=== PATIENT | male | born 1995 | race Caucasian/White ===

== ENCOUNTER 2021-10-14 17:39 | Emergency (ER) | payer BC ==
[2021-10-14 17:49] VITALS: BP 145/97; PULSE 58
[2021-10-14] MEDS ORDERED: Lidocaine 1% 10 ML MDV INJECT ONE (17:54)
[2021-10-14] MEDS ORDERED: cefTRIAXone 1 GM, Lidocaine 1% 2.1 ML IM ONE ×2 (19:08)
[2021-10-14] MEDS ORDERED: HYDROmorphone 1 MG/ML Syringe IM ONE (19:08)
== END 2021-10-14 19:38 ==
LOC: JD.ED 17:39
DX: S62.634B Displaced fracture of distal phalanx of right ring finger, initial encounter for open fracture (principal); Z79.899 Other long term (current) drug therapy; W26.8XXA Contact with other sharp object(s), not elsewhere classified, initial encounter
CPT/HCPCS: 73140; 96372; 99283; J0696; J1170; 99284